=== PATIENT | male | born 1960 | race Caucasian/White ===

== ENCOUNTER 2022-02-28 16:31 | Inpatient (IN) ==
[2022-02-28] MEDS ORDERED: IOPAMIDOL 100 ML BOTTLE IV ONE (16:32)
[2022-02-28] MEDS ORDERED: 0.9 % SODIUM CHLORIDE 2,000 ML IV ONE (17:48)
[2022-02-28] MEDS ORDERED: ONDANSETRON 4 MG/2 ML VIAL IV ONE (17:48)
[2022-02-28] MEDS ORDERED: HYDROmorphone 0.5 MG/0.5 ML SYRINGE IV ONE (17:48)
--- NOTE | 2022-02-28 17:56 | Emergency Department Note ---
Nausea/Vomiting/Diarrhea HPI General Chief complaint: Nausea/Vomiting/Diarrhea Stated complaint: possible drug reaction Time Seen by Provider: 02/28/22 17:07 Source: patient Mode of arrival: ambulatory Limitations: no limitations History of Present Illness HPI Narrative: 61-year-old male on chronic warfarin for DVT presents with acute nausea, vomiting and abdominal pain. He was seen in the ER yesterday at [facility] for a left thigh abscess, which was incised and drained. He was put on clindamycin. He took 1 pill of this yesterday and then started having immediate abdominal pain with nausea and vomiting. He returned to [facility] ER this morning where they gave him some nausea medication and sent him home. He comes to the ER today with persistent and w orsening abdominal pain. His last bowel movement was yesterday. He has not passed flatus today. He is belching. Previous abdominal surgeries include a subtotal colectomy for colon cancer. Related Data Home Medications Medication Instructions Recorded Confirmed warfarin 5 mg tablet See Rx Instructions .Route .COMPLEX 02/28/22 02/28/22 Allergies Allergy/AdvReac Type Severity Reaction Status Date / Time No Known Drug Allergies Allergy Verified 02/28/22 21:02 Review of Systems ROS ROS Narrative: Narrative: All systems ED: reviewed and negative except as stated. [facility] Narrative Patient History Narrative: Narrative: Medical/Surgical/Family History All Active Problems (Updated 02/28/22 @ 21:18 by Alton Osorio MD) SBO (small bowel obstruction) (Acute) Medical History (Updated 02/28/22 @ 21:18 by Alton Osorio MD) Ulcerative colitis Surgical History History of colectomy Social History Smoking Status: Never smoker Exam Narrative Narrative: There is a general: AOx3, Radha the position due to pain. Wincing. HEENT: PERRL, EOMI, normocephalic. Dry mucous membranes. Normal facies and normal dentition. Chest: Symmetric, no pain to palpation Respiratory: Lungs clear to auscultation bilaterally. No respiratory distress. Unlabored breathing. Heart: Tachycardic rate 110 bpm, normal rhythm, no murmurs/clicks/rubs. Abdomen: Diffuse tenderness with moderate distention Extremities: Warm and well perfused. No edema. DP 2+ bilaterally. No venous stasis. Small 1 x 1 cm abscess to the left anterior thigh. There is emil rounding erythema consistent with mild cellulitis. Neuro: No focal deficits. Cranial nerves II-XII grossly normal. Skin: Warm dry, no rashes or lesions, no cyanosis. Psych: Normal mood and affect Heme/Lymph: No abnormal bruising General Limitations: no limitations Course Course Course Narrative: 61-year-old male presents with acute abdominal pain and nausea and vomiting Reevaluation(s) Reevaluation #1: Obtain basic labs, establish IV give IV fluids and antiemetics/analgesics CT of the abdomen pelvis with contrast to rule out small bowel obstruction Reevaluation #2: CT of the A/P shows mechanical SBO. I have reached out to Dr. Osorio for admission. Will place and NGT and keep NPO. Continue dilaudid for pain and IVFs. Vital Signs Vital signs: Vital Signs Temperature 97.3 F 02/28/22 16:34 Pulse Rate 110 H 02/28/22 16:34 Respiratory Rate 18 02/28/22 16:34 Blood Pressure 130/95 02/28/22 16:34 Pulse Oximetry (%) 95 02/28/22 16:34 Oxygen Delivery Method 02/28/22 16:34 Temperature 98.2 F 02/28/22 22:22 Pulse Rate 80 02/28/22 22:22 Respiratory Rate 14 02/28/22 22:22 Blood Pressure 131/83 02/28/22 22:22 Pulse Oximetry (%) 97 02/28/22 22:22 Oxygen Delivery Method 02/28/22 22:22 Oxygen Flow Rate (L/min) 2 02/28/22 22:22 [facility] Narrative Medical decision making narrative: Mechanical SBO Patient has been accepted for admission by Dr. Osorio. NGT has been placed and is on LIS. Lab Data Result diagrams: 02/28/22 17:57 Labs: Lab Results 02/28/22 02/28/22 02/28/22 Range/Units 17:57 17:57 18:06 WBC 18.2 H (4.5-11.0) K/mcL RBC 5.61 (4.63-6.08) M/mcL Hgb 17.0 (13.7-17.5) g/dL Hct 50.3 (40.1-51.0) % POC Hct 51.0 (41-55) MCV 89.7 (80.0-100.0) fL MCH 30.3 (26.0-34.0) pg MCHC 33.8 (31.0-36.0) g/dL RDW 13.6 (11.5-14.5) % Plt Count 323 (140-440) K/mcL MPV 9.6 (7.4-10.4) fL Immature Gran % (Auto) 0.3 (0.0-0.5) % Neut % (Auto) 92.8 H (38.0-78.0) % Lymph % (Auto) 2.5 L (15.5-49.0) % Yell % (Auto) 4.2 (1.0-12.0) % Eos % (Auto) 0 (0.0-7.0) % Baso % (Auto) 0.2 (0.0-2.0) % Lymph # (Auto) 0.45 L (1.50-4.80) K/mcL Yell # (Auto) 0.76 (0.10-0.90) K/mcL Eos # (Auto) 0 (0.00-0.70) K/mcL Baso # (Auto) 0.03 (0.00-0.30) K/mcL Immature Gran # 0.05 (0.00-0.05) K/mcl Absolute Neutrophils 16.92 H (1.80-8.00) K/mcL POC Sodium 139 (133-145) POC Potassium 4.3 (3.3-5.1) POC Chloride 106 (96-108) POC Total CO2 26.0 (22-30) POC BUN 14 (6-20) POC Creatinine 1.3 H (0.6-1.2) POC Glucose 150 H (70-105) POC WB Ioniz Calcium 1.08 L (1.16-1.32) Total Bilirubin 0.5 (0.1-1.0) mg/dL Direct Bilirubin < 0.2 (0-0.3) mg/dL AST 40 H (<40) U/L ALT 61 H (<40) U/L Alkaline Phosphatase 209 H (39-117) U/L Total Protein 7.6 (5.9-8.4) gm/dL Albumin 4.0 (3.2-5.2) gm/dL Globulin 3.6 (2.2-3.7) gm/dL Urine Color Urine Appearance (Clear) Urine pH (5.0-9.0) Ur Specific [place] (1.000-1.035) Urine Protein (Negative) mg/dL Urine Glucose (UA) (Negative) mg/dL Urine Ketones (Negative) mg/dL Urine Occult Blood (Negative) kinga/mcL Urine Nitrate (Negative) Urine Bilirubin (Negative) mg/dL Urine Urobilinogen mg/dL Ur Leukocyte Esterase (Negative) /uL Urine RBC (0-3) /hpf Urine WBC (0-4) /hpf Ur Squamous Epith Cells (0-4) /hpf Urine Bacteria (0) /hpf Urine Mucus (None) /hpf Ur Culture Indicated? 02/28/22 Range/Units 19:35 WBC (4.5-11.0) K/mcL RBC (4.63-6.08) M/mcL Hgb (13.7-17.5) g/dL Hct (40.1-51.0) % POC Hct (41-55) MCV (80.0-100.0) fL MCH (26.0-34.0) pg MCHC (31.0-36.0) g/dL RDW (11.5-14.5) % Plt Count (140-440) K/mcL MPV (7.4-10.4) fL Immature Gran % (Auto) (0.0-0.5) % Neut % (Auto) (38.0-78.0) % Lymph % (Auto) (15.5-49.0) % Yell % (Auto) (1.0-12.0) % Eos % (Auto) (0.0-7.0) % Baso % (Auto) (0.0-2.0) % Lymph # (Auto) (1.50-4.80) K/mcL Yell # (Auto) (0.10-0.90) K/mcL Eos # (Auto) (0.00-0.70) K/mcL Baso # (Auto) (0.00-0.30) K/mcL Immature Gran # (0.00-0.05) K/mcl Absolute Neutrophils (1.80-8.00) K/mcL POC Sodium (133-145) POC Potassium (3.3-5.1) POC Chloride (96-108) POC Total CO2 (22-30) POC BUN (6-20) POC Creatinine (0.6-1.2) POC Glucose (70-105) POC WB Ioniz Calcium (1.16-1.32) Total Bilirubin (0.1-1.0) mg/dL Direct Bilirubin (0-0.3) mg/dL AST (<40) U/L ALT (<40) U/L Alkaline Phosphatase (39-117) U/L Total Protein (5.9-8.4) gm/dL Albumin (3.2-5.2) gm/dL Globulin (2.2-3.7) gm/dL Urine Color Yellow Urine Appearance Clear (Clear) Urine pH 5.5 (5.0-9.0) Ur Specific [place] 1.010 (1.000-1.035) Urine Protein Negative (Negative) mg/dL Urine Glucose (UA) Negative (Negative) mg/dL Urine Ketones Negative (Negative) mg/dL Urine Occult Blood Trace-intact A (Negative) kinga/mcL Urine Nitrate Negative (Negative) Urine Bilirubin Negative (Negative) mg/dL Urine Urobilinogen Normal mg/dL Ur Leukocyte Esterase Negative (Negative) /uL Urine RBC 0 (0-3) /hpf Urine WBC 1 (0-4) /hpf Ur Squamous Epith Cells 0 (0-4) /hpf Urine Bacteria None (0) /hpf Urine Mucus Few A (None) /hpf Ur Culture Indicated? No Discharge Plan Patient/Caregiver Discharge Instructions Pt seen by [employer] MANAGER/PA only: Yes Clinical Impression: SBO (small bowel obstruction) Patient Disposition: Xfer As Inpt ([facility]) Discharge Date/Time: 02/28/22 20:45
[2022-02-28 18:11] LABS: POC Calcium, Ionized 1.08 (1.16-1.32); POC Creatinine 1.3 (0.6-1.2); POC Potassium 4.3 (3.3-5.1)
[2022-02-28 18:50] LABS: Basophils # (Auto) 0.03 K/mcL (0.00-0.30); Basophils % (Auto) 0.2 % (0.0-2.0); Eosinophils # (Auto) 0 K/mcL (0.00-0.70); Eosinophils % (Auto) 0 % (0.0-7.0); Hematocrit 50.3 % (40.1-51.0); Lymphocytes # (Auto) 0.45 K/mcL (1.50-4.80); Lymphocytes % (Auto) 2.5 % (15.5-49.0); Mean Cell Volume 89.7 fL (80.0-100.0); Mean Corpuscular HGB Conc 33.8 g/dL (31.0-36.0); Mean Platelet Volume 9.6 fL (7.4-10.4); Monocytes # (Auto) 0.76 K/mcL (0.10-0.90); Monocytes % (Auto) 4.2 % (1.0-12.0); Neutrophils % (Auto) 92.8 % (38.0-78.0); Platelet Count 323 K/mcL (140-440); RBC 5.61 M/mcL (4.63-6.08); Red Cell Distribution Width 13.6 % (11.5-14.5); WBC 18.2 K/mcL (4.5-11.0)
--- NOTE | 2022-02-28 18:59 | Cat Scan Report ---
INDICATION: r/o SBO COMPARISON: Previous examination dated 12/09/2013 TECHNIQUE: Axial images were obtained through the abdomen and pelvis. Sagittally and coronally reformatted images. 80 mL Isovue 370 injected intravenously. Oral contrast material was not administered FINDINGS: Lung bases:Negative. No pulmonary parenchymal nodule. No pleural fluid or pericardial fluid Liver:Negative. No focal intrahepatic mass. No focal abnormality. Liver contour is smooth. No evidence for cirrhosis Gallbladder, bilary:Gallbladder is somewhat distended. No detectable calculi. There is no significant intra or extrahepatic bile duct dilatation. Spleen:No splenomegaly. Normal enhancement of splenic and portal veins. Pancreas:No pancreatic mass. No peripancreatic abnormality Adrenal glands:Negative Kidneys,ureters,bladder:No solid renal mass. No hydronephrosis. No obstructing or nonobstructing calculi. There is a 2 cm right upper pole renal cyst No hydroureter. No ureteral calculus. No bladder stone. No detectable bladder mass. Gastrointestinal:Previous subtotal colectomy. There are 2 anastomotic suture lines within the distal colon at the rectum and distal sigmoid colon. There is fecal material within the distal sigmoid colon and rectum. There is a mechanical small bowel obstruction. There is dilated small bowel and extensive small bowel feces. Small bowel measures approximately 4 cm in maximum cross-sectional diameter. There is an ileal colonic anastomosis in the midline pelvis. Ileum just proximal is not dilated and this may be a site of obstruction. There is some nondilated fluid-filled jejunum in the left upper quadrant.. There is no closed-loop obstruction. No evidence for bowel ischemia Stomach and duodenum are distended and fluid-filled. There is a small hiatal hernia. Appendix: The appendix is removed Vascular:Negative abdominal aorta. Superior mesenteric artery and celiac trunk are normal. Normal opacification of the inferior mesenteric artery Lymphatic:No retroperitoneal or mesenteric adenopathy Mesentery, peritoneum: Minimal free fluid in the right lower quadrant. No intra-abdominal abscess. No pneumoperitoneum Reproductive:Prostate is not significantly enlarged Musculoskeletal:No lumbar compression fractures. Sacrum and pelvis are negative. No hip fracture. Small umbilical hernia containing only mesenteric fat. Hernia defect measures approximately 2 cm IMPRESSION: 1. Previous subtotal colectomy 2. Mechanical small bowel obstruction with dilated stomach and duodenum. There is dilated ileum and a large amount of small bowel feces 3. Focal narrowing at the ileal colonic anastomosis within the pelvis 4. Small amount of free intraperitoneal fluid 5. Small umbilical hernia containing only mesenteric fat 6. Small hiatal hernia The exam was performed using radiation dose optimization techniques including, but not limited to, automated exposure control, adjustment of the mA and/or kV according to patient size and use of iterative reconstruction technique. Interpreted and Authenticated by: Jacob Blanco 02/28/22
[2022-02-28] MEDS ORDERED: HYDROmorphone 1 MG/ML SYRINGE IV ONE (19:10)
[2022-02-28 19:26] LABS: ALT/SGPT 61 U/L (<40); AST/SGOT 40 U/L (<40); Alkaline Phosphatase 209 U/L (39-117); Bilirubin,Direct < 0.2 mg/dL (0-0.3); Bilirubin,Total 0.5 mg/dL (0.1-1.0); Globulin 3.6 gm/dL (2.2-3.7)
[2022-02-28] MEDS ORDERED: HYDROmorphone 1 MG/ML SYRINGE IV PRN (19:36)
[2022-02-28 20:57] LABS: Appearance,Urine Clear (Clear); Bilirubin,Urine Negative (Negative); Color,Urine Yellow; Culture Indicated,Urine No; Glucose,Urine (UA) Negative (Negative); Ketones,Urine Negative (Negative); Leukocyte Esterase,Urine Negative /uL (Negative); Mucus,Urine FEW /hpf; Nitrate,Urine Negative (Negative); PH,Urine 5.5 (5.0-9.0); Protein,Urine Negative (Negative); Urine Blood Trace-intact ery/mcL (Negative); Urine RBC 0 /hpf (0-3); Urine Squamous Epithelial Cell 0 /hpf (0-4); Urine WBC 1 /hpf (0-4); Urobilinogen,Urine Normal
--- NOTE | 2022-02-28 21:20 | General Surg History&Physical ---
HPI History of Present Illness Patient information: Note initiated : 02/28/22 at 9:16 pm Service Date, if different from initiated Date: [] Patient: Prosper Kellogg a 61 y/o M admitted on 02/28/22 for possible drug reaction. Chief Complaint: [] History of present illness: Mr. Kellogg is a 61 year old M who presents with 1 day history of abdominal pain, distention, nausea and emesis. Patient was seen twice at [facility] emergency room, was discharged without work-up. Patient has a past surgical history significant for total abdominal colectomy secondary to ulcerative colitis. He has not had any episodes of bowel obstruction in the past. He does report that he has been distended but he has no fevers chills nausea or vomiting. Work-up in the emergency room was significant for a CT scan consistent with partial small bowel obstruction. PFSH PFSH All Active Problems (Updated 02/28/22 @ 21:18 by Alton Osorio MD) SBO (small bowel obstruction) (Acute) Medical History (Updated 02/28/22 @ 21:18 by Alton Osorio MD) Ulcerative colitis Surgical History History of colectomy Social History smoking status: Never smoker MEDS/ALLERGIES Home Medications and Allergies Home Medications Medication Instructions Recorded Confirmed Type warfarin 5 mg tablet See Rx Instructions .Route .COMPLEX 02/28/22 02/28/22 History Allergies Allergy/AdvReac Type Severity Reaction Status Date / Time No Known Drug Allergies Allergy Verified 02/28/22 21:02 Physical Examination Vital Signs Vital signs: Temp Pulse Resp BP Pulse Ox O2 Del Method O2 Flow Rate 98.2 F 98 H 14 155/98 96 2 02/28/22 20:53 02/28/22 20:53 02/28/22 20:53 02/28/22 20:53 02/28/22 20:53 02/28/22 20:53 02/28/22 20:53 General physical appearance General physical exam: well developed, well nourished and no distress Eyes Eye exam: PERRL and normal ocular movement ENT ENT exam: normal pinna, normal nares, normal mucosa, no hearing loss and no congestion Head Head exam IM: Present atraumatic and normocephalic Neck Neck exam: no masses, no bruits, trachea midline, no lymphadenopathy and no venous distension Cardiovascular Cardiovascular exam IM: Present normal rate and rhythm Respiratory Respiratory exam: normal expansion, normal respiratory effort, clear to percussion and clear to auscultation Abdomen Abdomen: Present soft, non tender, bowel sounds, surgical scars and distended; Absent guarding or rebound Hernia: Present none Genitourinary Genitourinary (Male): Present normal penis with no external lesions Rectum Rectum: Present normal sphincter tone, no hemorrhoids, no tenderness, no masses and no bleeding Integumentary Integumentary: Present no rash, no growths and no abnormal pigmentation Neurologic Neurologic: Present normal coordination and normal sensation Musculoskeletal Musculoskeletal: Present normal gait and normal posture Psychiatric Psychiatric: Present oriented to time, oriented to person, oriented to place, speech is normal and memory intact Results Labs Result diagrams: 02/28/22 17:57 Labs: Abnormal lab results 02/28/22 02/28/22 02/28/22 Range/Units 17:57 17:57 18:06 WBC 18.2 H (4.5-11.0) K/mcL Neut % (Auto) 92.8 H (38.0-78.0) % Lymph % (Auto) 2.5 L (15.5-49.0) % Lymph # (Auto) 0.45 L (1.50-4.80) K/mcL Absolute Neutrophils 16.92 H (1.80-8.00) K/mcL POC Creatinine 1.3 H (0.6-1.2) POC Glucose 150 H (70-105) POC WB Ioniz Calcium 1.08 L (1.16-1.32) AST 40 H (<40) U/L ALT 61 H (<40) U/L Alkaline Phosphatase 209 H (39-117) U/L Urine Occult Blood (Negative) kinga/mcL Urine Mucus (None) /hpf 02/28/22 Range/Units 19:35 WBC (4.5-11.0) K/mcL Neut % (Auto) (38.0-78.0) % Lymph % (Auto) (15.5-49.0) % Lymph # (Auto) (1.50-4.80) K/mcL Absolute Neutrophils (1.80-8.00) K/mcL POC Creatinine (0.6-1.2) POC Glucose (70-105) POC WB Ioniz Calcium (1.16-1.32) AST (<40) U/L ALT (<40) U/L Alkaline Phosphatase (39-117) U/L Urine Occult Blood Trace-intact A (Negative) kinga/mcL Urine Mucus Few A (None) /hpf Diabetes panel 02/28/22 Range/Units 17:57 AST 40 H (<40) U/L ALT 61 H (<40) U/L Alkaline Phosphatase 209 H (39-117) U/L Total Protein 7.6 (5.9-8.4) gm/dL Albumin 4.0 (3.2-5.2) gm/dL Calcium panel 02/28/22 Range/Units 17:57 Albumin 4.0 (3.2-5.2) gm/dL Adrenal panel 02/28/22 Range/Units 17:57 Total Bilirubin 0.5 (0.1-1.0) mg/dL AST 40 H (<40) U/L ALT 61 H (<40) U/L Alkaline Phosphatase 209 H (39-117) U/L Total Protein 7.6 (5.9-8.4) gm/dL Albumin 4.0 (3.2-5.2) gm/dL All other labs normal. Imaging CT scan - abdomen: image reviewed A/P Assessment and plan (1) SBO (small bowel obstruction): Assessment and plan: This is a pleasant 61-year-old gentleman who presents with signs and symptoms most consistent with a partial small bowel obstruction. Long discussion with patient about treatment details. He verbalizes understan ding Plan: N.p.o., NG tube. Likely partial small bowel follow-through in the morning. Status: Acute Time Spent With Patient Time: Total time spent is greater than 50% in coordination of care (as documented) at patient's floor/unit and/or counseling patient:
[2022-02-28] MEDS: LACTATED RINGERS 1,000 ML IV SCH (21:35)
[2022-02-28] MEDS: HYDROmorphone 0.5 MG/0.5 ML SYRINGE IV PRN (21:36)
[2022-02-28] MEDS ORDERED: SUCRETS LOZENGE PO PRN (22:49)
[2022-02-28] MEDS ORDERED: SUCRETS LOZENGE PO ONE (23:07)
[2022-03-01] MEDS: HYDROmorphone 0.5 MG/0.5 ML SYRINGE IV PRN ×8 (00:35→17:06)
[2022-03-01] MEDS: LACTATED RINGERS 1,000 ML IV SCH ×4 (05:35→23:56)
[2022-03-01 05:58] LABS: Basophils # (Auto) 0.02 K/mcL (0.00-0.30); Basophils % (Auto) 0.2 % (0.0-2.0); Eosinophils # (Auto) 0.01 K/mcL (0.00-0.70); Eosinophils % (Auto) 0.1 % (0.0-7.0); Hematocrit 45.6 % (40.1-51.0); Hemoglobin 14.8 g/dL (13.7-17.5); Lymphocytes # (Auto) 0.63 K/mcL (1.50-4.80); Lymphocytes % (Auto) 5.4 % (15.5-49.0); Mean Cell Volume 93.1 fL (80.0-100.0); Mean Corpuscular HGB Conc 32.5 g/dL (31.0-36.0); Mean Platelet Volume 8.6 fL (7.4-10.4); Monocytes # (Auto) 0.88 K/mcL (0.10-0.90); Monocytes % (Auto) 7.5 % (1.0-12.0); Neutrophils % (Auto) 86.5 % (38.0-78.0); Platelet Count 263 K/mcL (140-440); Red Cell Distribution Width 13.8 % (11.5-14.5); WBC 11.7 K/mcL (4.5-11.0)
--- NOTE | 2022-03-01 06:17 | XRay Report ---
INDICATION: NGTube placement verification TECHNIQUE: Supine abdomen. COMPARISON: CT scan dated 02/28/2022 FINDINGS:Esophagogastric tube with its tip in the body of the stomach. There is persistent dilated jejunum and ileum. No pneumatosis. No focal abnormality IMPRESSION: Esophagogastric tube in the stomach Interpreted and Authenticated by: Jacob Blanco 03/01/22
[2022-03-01 06:19] LABS: Blood Urea Nitrogen 14 mg/dL (8-23); Calcium 8.6 mg/dL (8.6-10.4); Carbon Dioxide 25 mmol/L (22-30); Chloride 109 mmol/L (96-108); Glomerular Filtration Rate 64; Glucose 131 mg/dL (70-105)
[2022-03-01] MEDS: ONDANSETRON 4 MG/2 ML VIAL IV PRN (14:02)
--- NOTE | 2022-03-01 14:21 | General Surgery Progress Note ---
SUBJECTIVE Subjective Patient information: Note initiated : 03/01/22 at 2:20 pm Service Date, if different from initiated Date: [] Patient: Prosper Kellogg 61 y/o M admitted on 02/28/22 for possible drug reaction. Chief Complaint: [] Interval history: Patient with continued crampy pain overnight, although he reports feeling less distended. Constitutional Vitals: Vital Signs Temp Pulse Resp BP Pulse Ox O2 Del Method O2 Flow Rate 97.4 F 101 H 16 141/88 95 2 03/01/22 12:00 03/01/22 12:00 03/01/22 12:00 03/01/22 12:00 03/01/22 12:00 03/01/22 12:00 03/01/22 12:00 Period Temp Pulse Resp BP Sys/Interiano Pulse Ox O2 Del Method O2 Flow Rate Last 24 Hr 97.3 F-98.4 F 64-110 14-18 130-171/83-103 67-98 Nasal Cannula- Room Air 1-4 Intake and Output 03/01/22 03/01/22 03/01/22 05:59 13:59 21:59 Intake Total 1000 1000 Output Total 200 200 Balance 800 800 Weight 160 lb 4.8 oz Patient Weight 03/02/22 05:59 Weight 160 lb 4.8 oz Intake & Output: Intake & Output 03/01/22 03/01/22 03/01/22 05:59 13:59 21:59 Intake Total 1000 1000 Output Total 200 200 Balance 800 800 Weight 160 lb 4.8 oz Intake: IV 1000 1000 Lactated Ringers 1,000 ml @ 125 1000 1000 mls/hr IV .Q8H [facility] Rx#: [id number] Oral 0 Output: Gastric Drainage 200 Right Nare 200 Void Amount 200 Other: Urine Appearance Clear Urine Color Dark Yellow Urine Odor Normal General appearance: no acute distress GI/Abdominal GI/Abdominal exam: Present soft; Absent distended, mass, rebound or tenderness A/P Assessment and plan (1) SBO (small bowel obstruction): Plan: Patient admitted with partial small bowel obstruction. Continue NG tube, and p.o. Small bowel follow-through today. Status: Acute Time Spent With Patient Time: Total time spent is greater than 50% in coordination of care (as documented) at patient's floor/unit and/or counseling patient:
[2022-03-01] MEDS ORDERED: 0.9 % SODIUM CHLORIDE 1,000 ML IV SCH (18:15)
[2022-03-01] MEDS ORDERED: LORazepam 2 MG/ML VIAL IV ONE (18:21)
[2022-03-01] MEDS ORDERED: LORazepam 2 MG/ML VIAL ONE (18:22)
[2022-03-01 18:27] LABS: POC INR 3.2 (0.8-1.2); POC Pro Time 36.8 (11.9-14.5)
--- NOTE | 2022-03-01 18:31 | XRay Report ---
INDICATION: Tachycardia TECHNIQUE: AP portable semiupright chest x-ray COMPARISON: Previous chest x-rays dated 11/28/2020, 01/27/2019, 09/16/2016 FINDINGS:Esophagogastric tube within the stomach Lungs:Parenchymal density in the left retrocardiac region consistent with left lower lobe volume loss or pneumonia. Lungs are otherwise negative Heart, vascular:No significant cardiomegaly. Pulmonary vascularity is normal. No pulmonary edema or pulmonary congestion Mediastinum, yesika:No mediastinal widening. No hilar mass Pleura:No pleural fluid. No pleural-based mass or calcification Skeletal:Negative. IMPRESSION: Density at the left lung base consistent with volume loss or pneumonia Interpreted and Authenticated by: Jacob Blanco 03/01/22
[2022-03-01] MEDS ORDERED: METOPROLOL TARTRATE 5 MG/5 ML VIAL IV ONE (18:52)
[2022-03-01] MEDS ORDERED: PIPERACILLIN SODIUM/TAZOBACTAM 3.375 GM in DEXTROSE 5% IN WATER 50 ML IV ONE (18:53)
[2022-03-01] MEDS ORDERED: LACTATED RINGERS 1,000 ML IV ONE (18:56)
--- NOTE | 2022-03-01 19:03 | Internal Medicine Consult Note ---
HPI Data of Consult Consult date: 03/01/22 Requesting physician: Alton Osorio Primary Care Provider: Kike Cantrell Consult Narrative Patient Information: Note initiated : 03/01/22 at 6:58 pm Service Date, if different from initiated Date: [] Patient: Prosper Kellogg 61 y/o M admitted on 02/28/22 for possible drug reaction. 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 He was admitted under the surgical service. NG tube was placed for decompression and he was managed nonoperatively. Today, the patient had a rapid response due to tachycardia with a heart rate of 170. He was hemodynamically stable. The patient was alert, oriented and able to converse. A carotid massage was attempted as well as a vagal maneuver for SVT. The patient was given Lopressor 5 mg IV x1 and his heart rate has come down nicely. The patient states that he has no known history of cardiovascular disease, arrhythmias, or valvular heart disease. The hospital service has been consulted to manage his supraventricular tachyarrhythmia. Chief complaint: Rapid response cc:: CC: Alton Osorio MD Review of Systems All systems: reviewed and no additional remarkable complaints except as stated Constitutional Constitutional: Present as per HPI EENT Eyes: Present as per HPI; Absent blurry vision Cardiovascular Cardiovascular: Present as per HPI; Absent chest pain, dyspnea, dyspnea on exertion, leg edema or palpatations Respiratory Respiratory: Present as per HPI; Absent cough, dyspnea, dyspnea on exertion, wheezing or stridor Gastrointestinal Gastrointestinal: Present as per HPI; Absent abdominal pain, diarrhea, dysphagia, hematemesis, melena, nausea or vomiting Musculoskeletal Musculoskeletal: Present as per HPI; Absent joint swelling, limited range of motion, muscle cramps, muscle weakness or myalgias Integumentary Integumentary: Present as per HPI; Absent erythema, new lesions, rash or wounds Neurological Neurological: Present as per HPI; Absent abnormal gait, behavioral changes, focal weakness, headache(s), loss of vision, numbness, sensory deficit or syncope Endocrine Endocrine: Absent change in body appearance, fatigue or heat intolerance Hematologic/Lymphatic Hematologic/Lymphatic: Present as per HPI PFSH PFSH All Active Problems (Updated 03/01/22 @ 20:02 by Joeleln Shah MD) SVT (supraventricular tachycardia) (Acute) SBO (small bowel obstruction) (Acute) Medical History (Updated 03/01/22 @ 20:02 by Joellen Shah MD) Ulcerative colitis Surgical History History of colectomy Social History smoking status: Never smoker MEDS/ALLERGIES Home Medications and Allergies Home Medications Medication Instructions Recorded Confirmed Type warfarin 5 mg tablet See Rx Instructions .Route .COMPLEX 02/28/22 02/28/22 History Allergies Allergy/AdvReac Type Severity Reaction Status Date / Time No Known Drug Allergies Allergy Verified 02/28/22 21:02 EXAM Constitutional Vitals: Temp Pulse Resp BP Pulse Ox O2 Del Method O2 Flow Rate 100.1 F H 141 H 28 H 162/100 90 15 03/01/22 16:00 03/01/22 18:06 03/01/22 18:06 03/01/22 16:00 03/01/22 18:06 03/01/22 18:06 03/01/22 18:06 General appearance: average body habitus Head Head exam: Present atraumatic, normal inspection and normocephalic Eye Eye exam: Present EOMI, normal appearance and PERRL; Absent conjunctival injection ENT ENT exam: Present normal exam; Absent mucous membranes dry Neck Neck exam: Present full ROM; Absent lymphadenopathy Respiratory Respiratory exam: Present normal respiratory exam and CTAB; Absent decreased breath sounds, respiratory distress or wheezes Cardiovascular Cardiovascular exam: Present RRR and tachycardia; Absent normal rate and rhythm or JVD GI/Abdominal GI/Abdominal exam: Present soft; Absent normal bowel sounds, diminished bowel sounds, distended, guarding, mass, rebound or tenderness Neurological Exam Neurological exam: Present alert, CN II-XII intact and oriented X3 Psychiatric Psychiatric exam: Present normal affect and normal mood Skin Skin exam: Present intact and warm; Absent erythema, pallor, petechiae or rash DATA Data Completed and Pending Labs: Labs from last 24 hours 03/01/22 03/01/22 03/01/22 18:53 18:53 18:50 WBC RBC Hgb Hct MCV MCH MCHC RDW Plt Count MPV Immature Gran % (Auto) Neut % (Auto) Lymph % (Auto) [place] % (Auto) Eos % (Auto) Baso % (Auto) Lymph # (Auto) [place] # (Auto) Eos # (Auto) Baso # (Auto) Immature Gran # Absolute Neutrophils POC PT POC INR D-Dimer Pending POC VBG pH POC VBG pCO2 at Temp POC VBG pO2 POC VBG HCO3 POC VBG Total CO2 POC Venous O2 Sat POC VBG Base Excess VBG Lactic Acid Sodium Potassium Chloride Carbon Dioxide Anion Gap BUN Creatinine GFR Calculation Glucose Calcium Magnesium Pending Total Bilirubin Direct Bilirubin AST ALT Alkaline Phosphatase Troponin T Pending Total Protein Albumin Globulin Albumin/Globulin Ratio Urine Color Urine Appearance Urine pH Ur Specific [place] Urine Protein Urine Glucose (UA) Urine Ketones Urine Occult Blood Urine Nitrate Urine Bilirubin Urine Urobilinogen Ur Leukocyte Esterase Urine RBC Urine WBC Ur Squamous Epith Cells Urine Bacteria Urine Mucus Ur Culture Indicated? 03/01/22 03/01/22 03/01/22 18:33 18:24 18:24 WBC RBC Hgb Hct MCV MCH MCHC RDW Plt Count MPV Immature Gran % (Auto) Neut % (Auto) Lymph % (Auto) [place] % (Auto) Eos % (Auto) Baso % (Auto) Lymph # (Auto) [place] # (Auto) Eos # (Auto) Baso # (Auto) Immature Gran # Absolute Neutrophils POC PT 36.8 H POC INR 3.2 H D-Dimer POC VBG pH 7.32 POC VBG pCO2 at Temp 55.3 H POC VBG pO2 27 POC VBG HCO3 28.3 H POC VBG Total CO2 30.0 H POC Venous O2 Sat 45.0 POC VBG Base Excess 2.0 VBG Lactic Acid 4.6 H* Sodium Pending Potassium Pending Chloride Pending Carbon Dioxide Pending Anion Gap Pending BUN Pending Creatinine Pending GFR Calculation Pending Glucose Pending Calcium Pending Magnesium Total Bilirubin Pending Direct Bilirubin AST Pending ALT Pending Alkaline Phosphatase Pending Troponin T Total Protein Pending Albumin Pending Globulin Pending Albumin/Globulin Ratio Pending Urine Color Urine Appearance Urine pH Ur Specific [place] Urine Protein Urine Glucose (UA) Urine Ketones Urine Occult Blood Urine Nitrate Urine Bilirubin Urine Urobilinogen Ur Leukocyte Esterase Urine RBC Urine WBC Ur Squamous Epith Cells Urine Bacteria Urine Mucus Ur Culture Indicated? 03/01/22 03/01/22 03/01/22 18:24 05:24 05:24 WBC Pending 11.7 H RBC Pending 4.90 Hgb Pending 14.8 Hct Pending 45.6 MCV Pending 93.1 MCH Pending 30.2 MCHC Pending 32.5 RDW Pending 13.8 Plt Count Pending 263 MPV Pending 8.6 Immature Gran % (Auto) Pending 0.3 Neut % (Auto) Pending 86.5 H Lymph % (Auto) 5.4 L [place] % (Auto) 7.5 Eos % (Auto) 0.1 Baso % (Auto) 0.2 Lymph # (Auto) 0.63 L [place] # (Auto) 0.88 Eos # (Auto) 0.01 Baso # (Auto) 0.02 Immature Gran # Pending 0.03 Absolute Neutrophils 10.12 H POC PT POC INR D-Dimer POC VBG pH POC VBG pCO2 at Temp POC VBG pO2 POC VBG HCO3 POC VBG Total CO2 POC Venous O2 Sat POC VBG Base Excess VBG Lactic Acid Sodium 140 Potassium 4.2 Chloride 109 H Carbon Dioxide 25 Anion Gap 6.0 L BUN 14 Creatinine 1.2 GFR Calculation 64 Glucose 131 H Calcium 8.6 Magnesium Total Bilirubin Direct Bilirubin AST ALT Alkaline Phosphatase Troponin T Total Protein Albumin Globulin Albumin/Globulin Ratio Urine Color Urine Appearance Urine pH Ur Specific [place] Urine Protein Urine Glucose (UA) Urine Ketones Urine Occult Blood Urine Nitrate Urine Bilirubin Urine Urobilinogen Ur Leukocyte Esterase Urine RBC Urine WBC Ur Squamous Epith Cells Urine Bacteria Urine Mucus Ur Culture Indicated? 02/28/22 02/28/22 19:35 17:57 WBC RBC Hgb Hct MCV MCH MCHC RDW Plt Count MPV Immature Gran % (Auto) Neut % (Auto) Lymph % (Auto) [place] % (Auto) Eos % (Auto) Baso % (Auto) Lymph # (Auto) [place] # (Auto) Eos # (Auto) Baso # (Auto) Immature Gran # Absolute Neutrophils POC PT POC INR D-Dimer POC VBG pH POC VBG pCO2 at Temp POC VBG pO2 POC VBG HCO3 POC VBG Total CO2 POC Venous O2 Sat POC VBG Base Excess VBG Lactic Acid Sodium Potassium Chloride Carbon Dioxide Anion Gap BUN Creatinine GFR Calculation Glucose Calcium Magnesium Total Bilirubin 0.5 Direct Bilirubin < 0.2 AST 40 H ALT 61 H Alkaline Phosphatase 209 H Troponin T Total Protein 7.6 Albumin 4.0 Globulin 3.6 Albumin/Globulin Ratio Urine Color Yellow Urine Appearance Clear Urine pH 5.5 Ur Specific [place] 1.010 Urine Protein Negative Urine Glucose (UA) Negative Urine Ketones Negative Urine Occult Blood Trace-intact A Urine Nitrate Negative Urine Bilirubin Negative Urine Urobilinogen Normal Ur Leukocyte Esterase Negative Urine RBC 0 Urine WBC 1 Ur Squamous Epith Cells 0 Urine Bacteria None Urine Mucus Few A Ur Culture Indicated? No A/P Assessment and plan (1) SBO (small bowel obstruction): Assessment and plan: Mx per surgery Status: Acute (2) SVT (supraventricular tachycardia): Assessment and plan: Tacchydysrhythmia rising above the [place] of [place] and encompasses regular atrial, irrgular atrial and regular AV tachycardias -DDX: AVRT, AVNRT, AF/flutter, ST -Investigations: TTE, d-dimer, trop, Mg, Phos -Tx: Lopressor 5mg IV x 1, repeat prn -Monitor on telemetry Status: Acute Narrative A/P Narrative: Lactic acidosis -Investigations: CT a/p with contrast r/o ischemic bowel -Tx: LR bolus Time Spent With Patient Time: Total time spent is greater than 50% in coordination of care (as documented) at patient's floor/unit and/or counseling patient: Total time spent with greater than 50% in coordination of care (as documented) at patient's floor/unit and/or counseling patient:: 35 - 50 minutes Critical Care Time: Yes Total Critical Care Time: 30
[2022-03-01 19:04] LABS: Basophils # (Auto) 0.02 K/mcL (0.00-0.30); Basophils % (Auto) 0.2 % (0.0-2.0); Eosinophils # (Auto) 0 K/mcL (0.00-0.70); Eosinophils % (Auto) 0 % (0.0-7.0); Hematocrit 49.2 % (40.1-51.0); Hemoglobin 16.2 g/dL (13.7-17.5); Lymphocytes # (Auto) 0.48 K/mcL (1.50-4.80); Lymphocytes % (Auto) 5.9 % (15.5-49.0); Mean Cell Volume 92.7 fL (80.0-100.0); Mean Corpuscular HGB Conc 32.9 g/dL (31.0-36.0); Mean Platelet Volume 8.7 fL (7.4-10.4); Monocytes # (Auto) 0.41 K/mcL (0.10-0.90); Neutrophils % (Auto) 88.8 % (38.0-78.0); Platelet Count 354 K/mcL (140-440); RBC 5.31 M/mcL (4.63-6.08); Red Cell Distribution Width 14.1 % (11.5-14.5); WBC 8.2 K/mcL (4.5-11.0)
[2022-03-01] MEDS ORDERED: IOPAMIDOL 100 ML BOTTLE IV ONE (19:22)
[2022-03-01 19:25] LABS: ALT/SGPT 44 U/L (<40); AST/SGOT 24 U/L (<40); Albumin 3.8 gm/dL (3.2-5.2); Albumin/Globulin Ratio 1.1 (1.0-2.3); Alkaline Phosphatase 170 U/L (39-117); Bilirubin,Total 0.6 mg/dL (0.1-1.0); Blood Urea Nitrogen 20 mg/dL (8-23); Calcium 9.5 mg/dL (8.6-10.4); Carbon Dioxide 27 mmol/L (22-30); Chloride 102 mmol/L (96-108); Globulin 3.5 gm/dL (2.2-3.7); Glomerular Filtration Rate 49; Glucose 172 mg/dL (70-105)
[2022-03-01] MEDS ORDERED: DIATRIZOATE MEGLU/DIATRIZO SOD 120 ML BOTTLE PO ONE (19:29)
--- NOTE | 2022-03-01 19:43 | Cat Scan Report ---
INDICATION: ?Ischemic bowel COMPARISON: Previous CT scan dated 02/28/2022 TECHNIQUE: Axial images were obtained through the abdomen and pelvis. Sagittally and coronally reformatted images. 80 mL Isovue 370 injected intravenously. There is oral contrast material within the gastrointestinal tract due to small bowel study begun this morning FINDINGS: Lung bases:Severe pulmonary parenchymal abnormality in both lower lobes. There is consolidation with air bronchograms. Appearance is consistent with pneumonia. These are new findings since previous examination. This patient has had a nasogastric tube in place but aspiration pneumonia is not excluded. Liver:Negative. No focal intrahepatic mass. No focal abnormality. Liver contour is smooth. No evidence for cirrhosis Gallbladder, bilary:Gallbladder is distended. Gallbladder measures 10.2 cm maximally. No calcified gallstones. No gallbladder wall thickening. No dilated bile ducts. Spleen:No splenomegaly. Normal enhancement of splenic and portal veins. Pancreas:No pancreatic mass. No peripancreatic abnormality Adrenal glands:Negative Kidneys,ureters,bladder:Right upper pole renal cyst is again identified. No solid renal mass. There is no hydronephrosis. No hydroureter. No ureteral calculus. There is contrast material within the urinary bladder from previous CT scan. Bladder wall is trabeculated. There is no discrete bladder mass identified. Gastrointestinal:Patient has a history of subtotal colectomy. There is an anastomotic suture line at the sigmoid rectal junction. There is a second suture line consistent with small bowel colon anastomosis in the right side of the pelvis. There is also a suture line in the right upper quadrant which appears to be an enteroenteroanastomosis. Persistent dilated small bowel consistent with mechanical small bowel obstruction. There is prominent small bowel feces in the right side of the abdomen. Transition point is difficult to identify. There is narrowed small bowel proximal to the enterocolonic anastomosis. Small bowel feces sign is higher in the abdomen on the right side. This may also be at the point of obstruction. There is no detectable closed loop obstruction. Bowel wall appears perfused. There is no bowel wall thickening. There is no perienteric fluid. There is no pneumoperitoneum. Appendix: The appendix is surgically absent Vascular:Abdominal aorta is negative. Superior mesenteric artery and celiac trunk are normal without stenosis Lymphatic:No retroperitoneal or mesenteric adenopathy Mesentery, peritoneum: No free intraperitoneal fluid. No pneumoperitoneum. No intra-abdominal abscess Reproductive:Prostate is not significantly enlarged Musculoskeletal:No lumbar compression fractures. Sacrum and pelvis are negative. No hip fracture. Small umbilical hernia contains only mesenteric fat. There is no protruding bowel IMPRESSION: 1. Bilateral lower lobe consolidation consistent with pneumonia. Aspiration pneumonia is possible 2. Persistent mechanical small bowel obstruction, essentially unchanged. Transition point appears to be in the right side of the abdomen. There may be a transition point at the enterocolonic anastomosis or may be a transition point slightly more cephalad in the right side of the abdomen at the point of small bowel feces 3. Distended gallbladder 4. No CT evidence for mesenteric ischemia The exam was performed using radiation dose optimization techniques including, but not limited to, automated exposure control, adjustment of the mA and/or kV according to patient size and use of iterative reconstruction technique. Interpreted and Authenticated by: Jacob Blanco 03/01/22
--- NOTE | 2022-03-01 19:49 | XRay Report ---
INDICATION: follow up sbo TECHNIQUE: Gastrografin was administered through this patient's esophagogastric tube. Serial images were obtained to 7 hours, 40 minutes. COMPARISON: CT scan dated 02/28/2022 FINDINGS: Markedly dilated small bowel. There is slow progression of contrast material through the small bowel. At 7 hours, 40 minutes there is contrast material through the jejunum but with very little ileal opacification. At this time the study was terminated as this patient was having respiratory difficulty and a follow-up CT scan was performed IMPRESSION: 1. Markedly delayed passage of contrast through small bowel 2. Dilated small bowel consistent with mechanical small bowel obstruction Interpreted and Authenticated by: Jacob Blanco 03/01/22
[2022-03-02] MEDS: LACTATED RINGERS 1,000 ML IV SCH ×3 (05:29→15:59)
[2022-03-02 06:24] LABS: Basophils # (Auto) 0.04 K/mcL (0.00-0.30); Basophils % (Auto) 0.4 % (0.0-2.0); Eosinophils # (Auto) 0 K/mcL (0.00-0.70); Eosinophils % (Auto) 0 % (0.0-7.0); Hematocrit 41.7 % (40.1-51.0); Hemoglobin 13.4 g/dL (13.7-17.5); Lymphocytes # (Auto) 0.46 K/mcL (1.50-4.80); Mean Cell Volume 94.6 fL (80.0-100.0); Mean Corpuscular HGB Conc 32.1 g/dL (31.0-36.0); Monocytes # (Auto) 0.46 K/mcL (0.10-0.90); Neutrophils % (Auto) 89.2 % (38.0-78.0); Platelet Count 223 K/mcL (140-440); RBC 4.41 M/mcL (4.63-6.08); Red Cell Distribution Width 14.1 % (11.5-14.5); WBC 9.3 K/mcL (4.5-11.0)
[2022-03-02 06:34] LABS: Blood Urea Nitrogen 23 mg/dL (8-23); Calcium 8.4 mg/dL (8.6-10.4); Carbon Dioxide 27 mmol/L (22-30); Chloride 108 mmol/L (96-108); Glomerular Filtration Rate 53; Glucose 137 mg/dL (70-105)
--- NOTE | 2022-03-02 08:56 | XRay Report ---
INDICATION: Follow-up partial small bowel obstruction TECHNIQUE: Supine abdomen. COMPARISON: Previous CT scan dated 03/01/2022. Previous small bowel study dated 03/01/2022 FINDINGS:Present examination is obtained 24 hours after initiation of a small bowel study with water-soluble contrast material. There is persistent small bowel dilatation. There has been passage of contrast material to the rectum consistent with high-grade partial obstruction at this time. IMPRESSION: Contrast material within the rectum. Present examination is obtained 24 hours after initiation of small bowel study Interpreted and Authenticated by: Jacob Blanco 03/02/22
[2022-03-02] MEDS ORDERED: PIPERACILLIN SODIUM/TAZOBACTAM 3.375 GM in DEXTROSE 5% IN WATER 50 ML IV SCH (09:00)
--- NOTE | 2022-03-02 11:50 | Internal Med Progress Note ---
SUBJECTIVE Subjective Patient information: Note initiated : 03/02/22 at 11:48 am Service Date, if different from initiated Date: [] Patient: Prosper Kellogg 61 y/o M admitted on 03/01/22 for possible drug reaction. Chief Complaint: [SVT] Principal diagnosis: Small bowel obstruction Interval history: The patient was resting comfortably with his significant other at the bedside. He is looking and feeling much better. He has had 2 bowel movements. The NG tube has now been removed. RN was present at the bedside to discuss plan of care. Constitutional Vitals: Vital Signs Temp Pulse Resp BP Pulse Ox O2 Del Method O2 Flow Rate 99.3 F H 81 22 117/63 95 4 03/02/22 08:01 03/02/22 10:06 03/02/22 07:01 03/02/22 10:06 03/02/22 10:06 03/02/22 08:00 03/02/22 10:06 Period Temp Pulse Resp BP Sys/Interiano Pulse Ox O2 Del Method O2 Flow Rate Last 24 Hr 97.4 F-101.5 F 81-160 16-28 104-162/63-100 90-96 Nasal Cannula-Oxymask 2-15 Intake and Output 03/01/22 03/02/22 03/02/22 21:59 05:59 13:59 Intake Total 896 1421 2955 Output Total 2050 500 450 Balance -3013 407 5120 Weight 72.393 kg Intake & Output: Intake & Output 03/01/22 03/02/22 03/02/22 21:59 05:59 13:59 Intake Total 896 1421 2955 Output Total 0 500 450 Balance -8613 979 7283 Weight 72.393 kg Intake: IV 896 1421 1035 Lactated Ringers 1,000 ml @ 274 638 2839 985 mls/hr IV .Q8H [facility] Rx#: [id number] Zosyn 3.375 gm In Dextrose 5% 50 50 in Water 50 ml @ 100 mls/hr IV Q6H [facility] Rx#:[id number] Oral 1920 Tube Feeding 0 Output: Gastric Drainage 1650 Right Nare 1650 Urine Catheter Amount 100 Void Amount 300 500 Stool 450 Other: Urine Appearance Clear Clear Urine Color Dark Yellow Dark Yellow Urine Odor Normal Normal Stool Size Large Stool Color Green Brown Green Stool Consistency Loose Liquid # Bowel Movements 1 Head Head exam: Present atraumatic and normal inspection Eye Eye exam: Present normal appearance ENT ENT exam: Present mucous membranes moist, normal exam and normal external ear exam Neck Neck exam: Present normal inspection Respiratory Respiratory exam: Present normal respiratory exam Cardiovascular Cardiovascular exam: Present normal rate and rhythm GI/Abdominal GI/Abdominal exam: Present normal bowel sounds Back Exam Back exam: Present normal inspection Neurological Exam Neurological exam: Present alert and oriented X3 Skin Skin exam: Present intact and warm OBJ DATA Labs CBC & Chem 7: 03/02/22 05:18 03/02/22 05:18 Labs: Abnormal Lab Results 03/02/22 03/02/22 03/02/22 09:13 05:18 05:18 WBC RBC 4.41 L Hgb 13.4 L Neut % (Auto) 89.2 H Lymph % (Auto) 5.0 L Lymph # (Auto) 0.46 L Absolute Neutrophils 8.29 H POC PT POC INR D-Dimer POC VBG pCO2 at Temp POC VBG HCO3 POC VBG Total CO2 VBG Lactic Acid 2.4 H Chloride Anion Gap Creatinine 1.4 H POC Creatinine Glucose 137 H POC Glucose Calcium 8.4 L POC WB Ioniz Calcium AST ALT Alkaline Phosphatase Urine Occult Blood Urine Mucus 03/01/22 03/01/22 03/01/22 18:53 18:33 18:24 WBC RBC Hgb Neut % (Auto) Lymph % (Auto) Lymph # (Auto) Absolute Neutrophils POC PT 36.8 H POC INR 3.2 H D-Dimer 1.97 H POC VBG pCO2 at Temp 55.3 H POC VBG HCO3 28.3 H POC VBG Total CO2 30.0 H VBG Lactic Acid 4.6 H* Chloride Anion Gap Creatinine POC Creatinine Glucose POC Glucose Calcium POC WB Ioniz Calcium AST ALT Alkaline Phosphatase Urine Occult Blood Urine Mucus 03/01/22 03/01/22 03/01/22 18:24 18:24 05:24 WBC RBC Hgb Neut % (Auto) 88.8 H Lymph % (Auto) 5.9 L Lymph # (Auto) 0.48 L Absolute Neutrophils POC PT POC INR D-Dimer POC VBG pCO2 at Temp POC VBG HCO3 POC VBG Total CO2 VBG Lactic Acid Chloride 109 H Anion Gap 6.0 L Creatinine 1.5 H POC Creatinine Glucose 172 H 131 H POC Glucose Calcium POC WB Ioniz Calcium AST ALT 44 H Alkaline Phosphatase 170 H Urine Occult Blood Urine Mucus 03/01/22 02/28/22 02/28/22 05:24 19:35 18:06 WBC 11.7 H RBC Hgb Neut % (Auto) 86.5 H Lymph % (Auto) 5.4 L Lymph # (Auto) 0.63 L Absolute Neutrophils 10.12 H POC PT POC INR D-Dimer POC VBG pCO2 at Temp POC VBG HCO3 POC VBG Total CO2 VBG Lactic Acid Chloride Anion Gap Creatinine POC Creatinine 1.3 H Glucose POC Glucose 150 H Calcium POC WB Ioniz Calcium 1.08 L AST ALT Alkaline Phosphatase Urine Occult Blood Trace-intact A Urine Mucus Few A 02/28/22 02/28/22 17:57 17:57 WBC 18.2 H RBC Hgb Neut % (Auto) 92.8 H Lymph % (Auto) 2.5 L Lymph # (Auto) 0.45 L Absolute Neutrophils 16.92 H POC PT POC INR D-Dimer POC VBG pCO2 at Temp POC VBG HCO3 POC VBG Total CO2 VBG Lactic Acid Chloride Anion Gap Creatinine POC Creatinine Glucose POC Glucose Calcium POC WB Ioniz Calcium AST 40 H ALT 61 H Alkaline Phosphatase 209 H Urine Occult Blood Urine Mucus Meds: Medications Amoxicillin/Clavulanate Potassium (Amoxicillin/Potassium Clav 875 Mg Tablet) [facility] Protocol Hydromorphone HCl (Hydromorphone 0.5 Mg/0.5 Ml Syringe) 1 mg IV Q2HP PRN; Protocol PRN Reason: Per Pain Protocol Last Admin: 03/01/22 17:06 Dose: 1 mg Lactated Ringer's (Lactated Ringers) 1,000 mls @ 125 mls/hr IV .[facility]H [facility] Last Admin: 03/02/22 07:49 Dose: 125 mls/hr Sodium Chloride (Sodium Chloride 0.9%) 1,000 mls @ 0 mls/hr IV .Q0M [facility] Ondansetron HCl (Ondansetron 4 Mg/2 Ml Vial) 4 mg IV Q6HP PRN PRN Reason: Nausea And Vomiting Last Admin: 03/01/22 14:02 Dose: 4 mg A/P Assessment and plan (1) SBO (small bowel obstruction): Assessment and plan: Mx per surgery Status: Acute (2) SVT (supraventricular tachycardia): Assessment and plan: Tacchydysrhythmia rising above the [place] and encompasses regular atrial, irrgular atrial and regular AV tachycardias -DDX: AVRT, AVNRT, AF/flutter, ST -Investigations: TTE, d-dimer, trop, Mg, Phos -Tx: Lopressor 5mg IV x 1 -Monitor on telemetry 03/02: This is now resolved. The patient's heart rate is much improved Status: Acute Narrative A/P Narrative: Lactic acidosis -Investigations: CT a/p with contrast r/o ischemic bowel -Tx: LR bolus 03/02: The patient's lactic acid has come down to 2.4 and he likely developed sepsis from aspiration pneumonia. His Zosyn will be transition to Augmentin. CT findings were concerning for bibasilar infiltrates at the bases. Time Spent With Patient Time: Total time spent is greater than 50% in coordination of care (as documented) at patient's floor/unit and/or counseling patient: Total time spent with greater than 50% in coordination of care (as documented) at patient's floor/unit and/or counseling patient:: 25 - 35 minutes Critical Care Time: Yes Total Critical Care Time: 30
--- NOTE | 2022-03-02 13:05 | General Surgery Progress Note ---
SUBJECTIVE Subjective Patient information: Note initiated : 03/02/22 at 1:03 pm Service Date, if different from initiated Date: [] Patient: Prosper Kellogg 61 y/o M admitted on 03/01/22 for possible drug reaction. Chief Complaint: [] Principal diagnosis: Small bowel obstruction Interval history: Patient was admitted for partial small bowel obstruction. Patient had a small bowel follow-through yesterday which did not show contrast through the small bowel at 3 hours. Patient got distended, nauseous and shortly after the study was concluded had an episode of SVT. Patient was transferred to the ICU for further monitoring of pulmonary and cardiac parameters. Overnight patient had 2 large bowel movements complete resolution of abdominal pain and distention with no further nausea vomiting fevers chills and resolution of his tachycardia. Constitutional Vitals: Vital Signs Temp Pulse Resp BP Pulse Ox O2 Del Method O2 Flow Rate 99.3 F H 81 22 117/63 95 4 03/02/22 08:01 03/02/22 10:06 03/02/22 07:01 03/02/22 10:06 03/02/22 10:06 03/02/22 08:00 03/02/22 10:06 Period Temp Pulse Resp BP Sys/Interiano Pulse Ox O2 Del Method O2 Flow Rate Last 24 Hr 99.3 F-101.5 F 81-160 16-28 104-162/63-100 90-96 Nasal Cannula-Oxymask 2-15 Intake and Output 03/01/22 03/02/22 03/02/22 21:59 05:59 13:59 Intake Total 896 1421 2955 Output Total 2049 500 450 Balance -4787 260 0185 Weight 159 lb 9.6 oz Intake & Output: Intake & Output 03/01/22 03/02/22 03/02/22 21:59 05:59 13:59 Intake Total 896 1421 2955 Output Total 2049 500 450 Balance -8179 250 6701 Weight 159 lb 9.6 oz Intake: IV 896 1421 1035 Lactated Ringers 1,000 ml @ 881 153 8172 985 mls/hr IV .Q8H [facility] Rx#: [id number] Zosyn 3.375 gm In Dextrose 5% 50 50 in Water 50 ml @ 100 mls/hr IV Q6H [facility] Rx#:[id number] Oral 1920 Tube Feeding 0 Output: Gastric Drainage 1650 Right Nare 1650 Urine Catheter Amount 100 Void Amount 300 500 Stool 450 Other: Urine Appearance Clear Clear Urine Color Dark Yellow Dark Yellow Urine Odor Normal Normal Stool Size Large Stool Color Green Brown Green Stool Consistency Loose Liquid # Bowel Movements 1 General appearance: no acute distress GI/Abdominal GI/Abdominal exam: Present soft; Absent distended, mass, rebound or tenderness A/P Assessment and plan (1) SBO (small bowel obstruction): Plan: Small bowel obstruction appears to have resolved. DC NG tube, clear liquid diet. If patient tolerates clear liquid diet will be clear for discharge later tonight or tomorrow from a surgical standpoint. Appreciate hospitalist input on cardiac standpoint. Status: Acute Time Spent With Patient Time: Total time spent is greater than 50% in coordination of care (as documented) at patient's floor/unit and/or counseling patient:
[2022-03-02] MEDS: AMOXICILLIN/POTASSIUM CLAV 875 MG TABLET PO SCH (17:05)
[2022-03-02] MEDS: ONDANSETRON 4 MG/2 ML VIAL IV PRN (17:09)
[2022-03-02] MEDS: 0.9 % SODIUM CHLORIDE 10 ML SYRINGE IV SCH (21:15)
[2022-03-03] MEDS: LACTATED RINGERS 1,000 ML IV SCH ×4 (00:05→16:47)
[2022-03-03] MEDS: 0.9 % SODIUM CHLORIDE 10 ML SYRINGE IV SCH ×4 (05:40→22:56)
--- NOTE | 2022-03-03 07:31 | General Surgery Progress Note ---
SUBJECTIVE Subjective Patient information: Note initiated : 03/03/22 at 7:29 am Service Date, if different from initiated Date: [] Patient: Prosper Kellogg 61 y/o M admitted on 03/01/22 for possible drug reaction. Chief Complaint: [] Principal diagnosis: Small bowel obstruction Interval history: Patient tolerated clear liquid diet without difficulty. Continues to have return of his normal bowel function. No fevers chills nausea or vomiting. Constitutional Vitals: Vital Signs Temp Pulse Resp BP Pulse Ox O2 Del Method O2 Flow Rate 98.3 F 65 18 121/65 96 2.5 03/03/22 04:01 03/03/22 06:01 03/03/22 06:01 03/03/22 06:01 03/03/22 06:01 03/03/22 04:20 03/03/22 06:01 Period Temp Pulse Resp BP Sys/Interiano Pulse Ox O2 Del Method O2 Flow Rate Last 24 Hr 98.3 F-100.0 F 61-92 17-21 91-128/47-81 94-97 Nasal Cannula- Nasal Cannula 2.5-20 Intake and Output 03/02/22 03/03/22 03/03/22 21:59 05:59 13:59 Intake Total 1360 1240 Output Total 1350 1375 Balance 10 -135 Weight 162 lb 8 oz Intake & Output: Intake & Output 03/02/22 03/03/22 03/03/22 21:59 05:59 13:59 Intake Total 1360 1240 Output Total 1350 1375 Balance 10 -135 Weight 162 lb 8 oz Intake: IV 1000 1000 Lactated Ringers 1,000 ml @ 125 1000 1000 mls/hr IV .Q8H [facility] Rx#: [id number] Oral 360 240 Output: Void Amount 150 Urine/Stool Mix 1350 650 Stool 575 Other: Urine Appearance Clear Urine Color Dark Yellow Stool Color Brown Green Green Stool Consistency Liquid Liquid # of times incontinent of 1 Bowels General appearance: cooperative and no acute distress GI/Abdominal GI/Abdominal exam: Present normal bowel sounds and soft; Absent distended or tenderness A/P Assessment and plan (1) SBO (small bowel obstruction): Plan: Resolved bowel obstruction. Advance diet as tolerated. Wean oxygen to off, anticipate discharge once off oxygen. Status: Acute Time Spent With Patient Time: Total time spent is greater than 50% in coordination of care (as documented) at patient's floor/unit and/or counseling patient:
[2022-03-03] MEDS: AMOXICILLIN/POTASSIUM CLAV 875 MG TABLET PO SCH ×2 (08:05→17:37)
--- NOTE | 2022-03-03 11:13 | Internal Med Progress Note ---
SUBJECTIVE Subjective Patient information: Note initiated : 03/03/22 at 11:11 am Service Date, if different from initiated Date: [] Patient: Prosper Kellogg 61 y/o M admitted on 03/01/22 for possible drug reaction. Chief Complaint: [] Principal diagnosis: Small bowel obstruction Interval history: The patient is looking and feeling much better. Discussed plan of care at length with him today. He is in good spirits. He was wondering if he should be moving to the [facility] in the setting of SBO. He understands that he would be at risk for redevelopment of his bowel obstruction at any point at any time. It would be beneficial if he were to stay in the [place] in my opinion. Constitutional Vitals: Vital Signs Temp Pulse Resp BP Pulse Ox O2 Del Method O2 Flow Rate 98.0 F 71 26 H 109/56 95 2.5 03/03/22 08:01 03/03/22 10:01 03/03/22 10:01 03/03/22 10:01 03/03/22 10:01 03/03/22 04:20 03/03/22 06:01 Period Temp Pulse Resp BP Sys/Interiano Pulse Ox O2 Del Method O2 Flow Rate Last 24 Hr 98.0 F-100.0 F 60-90 17-26 91-125/47-81 94-97 Nasal Cannula- Nasal Cannula 2.5-20 Intake and Output 03/02/22 03/03/22 03/03/22 21:59 05:59 13:59 Intake Total 1360 1240 1240 Output Total 1350 1375 750 Balance 10 -135 490 Weight 73.709 kg Intake & Output: Intake & Output 03/02/22 03/03/22 03/03/22 21:59 05:59 13:59 Intake Total 1360 1240 1240 Output Total 1350 1375 750 Balance 10 -135 490 Weight 73.709 kg Intake: IV 1000 1000 1000 Lactated Ringers 1,000 ml @ 125 1000 1000 1000 mls/hr IV .Q8H [facility] Rx#: [id number] Oral 360 240 240 Output: Void Amount 150 Urine/Stool Mix 1350 650 Stool 575 750 Other: Meal Breakfast Percent of Meal Consumed 100% Feeding Ability Independent Urine Appearance Clear Urine Color Dark Yellow Stool Color Brown Green Green Green Stool Consistency Liquid Liquid Liquid Watery # of times incontinent of 1 Bowels Head Head exam: Present atraumatic and normal inspection Eye Eye exam: Present normal appearance ENT ENT exam: Present mucous membranes moist, normal exam and normal external ear exam Neck Neck exam: Present normal inspection Respiratory Respiratory exam: Present normal respiratory exam Cardiovascular Cardiovascular exam: Present normal rate and rhythm GI/Abdominal GI/Abdominal exam: Present normal bowel sounds Back Exam Back exam: Present normal inspection Neurological Exam Neurological exam: Present alert and oriented X3 Skin Skin exam: Present intact and warm OBJ DATA Labs CBC & Chem 7: 03/02/22 05:18 03/02/22 05:18 Labs: Abnormal Lab Results 03/02/22 03/02/22 03/02/22 09:13 05:18 05:18 WBC RBC 4.41 L Hgb 13.4 L Neut % (Auto) 89.2 H Lymph % (Auto) 5.0 L Lymph # (Auto) 0.46 L Absolute Neutrophils 8.29 H POC PT POC INR D-Dimer POC VBG pCO2 at Temp POC VBG HCO3 POC VBG Total CO2 VBG Lactic Acid 2.4 H Chloride Anion Gap Creatinine 1.4 H POC Creatinine Glucose 137 H POC Glucose Calcium 8.4 L POC WB Ioniz Calcium AST ALT Alkaline Phosphatase Urine Occult Blood Urine Mucus 03/01/22 03/01/22 03/01/22 18:53 18:33 18:24 WBC RBC Hgb Neut % (Auto) Lymph % (Auto) Lymph # (Auto) Absolute Neutrophils POC PT 36.8 H POC INR 3.2 H D-Dimer 1.97 H POC VBG pCO2 at Temp 55.3 H POC VBG HCO3 28.3 H POC VBG Total CO2 30.0 H VBG Lactic Acid 4.6 H* Chloride Anion Gap Creatinine POC Creatinine Glucose POC Glucose Calcium POC WB Ioniz Calcium AST ALT Alkaline Phosphatase Urine Occult Blood Urine Mucus 03/01/22 03/01/22 03/01/22 18:24 18:24 05:24 WBC RBC Hgb Neut % (Auto) 88.8 H Lymph % (Auto) 5.9 L Lymph # (Auto) 0.48 L Absolute Neutrophils POC PT POC INR D-Dimer POC VBG pCO2 at Temp POC VBG HCO3 POC VBG Total CO2 VBG Lactic Acid Chloride 109 H Anion Gap 6.0 L Creatinine 1.5 H POC Creatinine Glucose 172 H 131 H POC Glucose Calcium POC WB Ioniz Calcium AST ALT 44 H Alkaline Phosphatase 170 H Urine Occult Blood Urine Mucus 03/01/22 02/28/22 02/28/22 05:24 19:35 18:06 WBC 11.7 H RBC Hgb Neut % (Auto) 86.5 H Lymph % (Auto) 5.4 L Lymph # (Auto) 0.63 L Absolute Neutrophils 10.12 H POC PT POC INR D-Dimer POC VBG pCO2 at Temp POC VBG HCO3 POC VBG Total CO2 VBG Lactic Acid Chloride Anion Gap Creatinine POC Creatinine 1.3 H Glucose POC Glucose 150 H Calcium POC WB Ioniz Calcium 1.08 L AST ALT Alkaline Phosphatase Urine Occult Blood Trace-intact A Urine Mucus Few A 02/28/22 02/28/22 17:57 17:57 WBC 18.2 H RBC Hgb Neut % (Auto) 92.8 H Lymph % (Auto) 2.5 L Lymph # (Auto) 0.45 L Absolute Neutrophils 16.92 H POC PT POC INR D-Dimer POC VBG pCO2 at Temp POC VBG HCO3 POC VBG Total CO2 VBG Lactic Acid Chloride Anion Gap Creatinine POC Creatinine Glucose POC Glucose Calcium POC WB Ioniz Calcium AST 40 H ALT 61 H Alkaline Phosphatase 209 H Urine Occult Blood Urine Mucus Meds: Medications Amoxicillin/Clavulanate Potassium (Amoxicillin/Potassium Clav 875 Mg Tablet) 875 mg PO BIDCC [facility]; Protocol Last Admin: 03/03/22 08:05 Dose: 875 mg Hydromorphone HCl (Hydromorphone 0.5 Mg/0.5 Ml Syringe) 1 mg IV Q2HP PRN; Protocol PRN Reason: Per Pain Protocol Last Admin: 03/01/22 17:06 Dose: 1 mg Lactated Ringer's (Lactated Ringers) 1,000 mls @ 125 mls/hr IV .Q8H [facility] Last Admin: 03/03/22 08:06 Dose: 125 mls/hr Sodium Chloride (Sodium Chloride 0.9%) 1,000 mls @ 0 mls/hr IV .Q0M [facility] Ondansetron HCl (Ondansetron 4 Mg/2 Ml Vial) 4 mg IV Q6HP PRN PRN Reason: Nausea And Vomiting Last Admin: 03/02/22 17:09 Dose: 4 mg Sodium Chloride (0.9 % Sodium Chloride 10 Ml Syringe) 10 ml IV Q8 [facility] Last Admin: 03/03/22 05:40 Dose: 10 ml A/P Assessment and plan (1) SBO (small bowel obstruction): Assessment and plan: Mx per surgery Status: Acute (2) SVT (supraventricular tachycardia): Assessment and plan: Tacchydysrhythmia rising above the [place] of His and encompasses regular atrial, irrgular atrial and regular AV tachycardias -DDX: AVRT, AVNRT, AF/flutter, ST -Investigations: TTE, d-dimer, trop, Mg, Phos -Tx: Lopressor 5mg IV x 1 -Monitor on telemetry 03/02: This is now resolved. The patient's heart rate is much improved Status: Acute Narrative A/P Narrative: Lactic acidosis -Investigations: CT a/p with contrast r/o ischemic bowel -Tx: LR bolus 03/02: The patient's lactic acid has come down to 2.4 and he likely developed sepsis from aspiration pneumonia. His Zosyn will be transition to Augmentin. CT findings were concerning for bibasilar infiltrates at the bases. 03/03: The patient's supplemental O2 is being weaned down. He is on Augmentin for his aspiration pneumonia and will be treated for total of 5 days. He may be able to discharge home in 1 to 2 days. Thank you for allowing me to participate in the care of this patient. I will continue to follow along. Do not hesitate to call with any questions or concerns. Time Spent With Patient Time: Total time spent is greater than 50% in coordination of care (as documented) at patient's floor/unit and/or counseling patient: Total time spent with greater than 50% in coordination of care (as documented) at patient's floor/unit and/or counseling patient:: 25 - 35 minutes
[2022-03-03] MEDS: HYDROmorphone 0.5 MG/0.5 ML SYRINGE IV PRN ×4 (12:16→20:25)
[2022-03-03] MEDS ORDERED: PANTOPRAZOLE 40 MG TABLET PO SCH (21:00)
[2022-03-03] MEDS ORDERED: FLEETS ADULT ENEMA PR ONE ×2 (22:40→22:56)
[2022-03-04] MEDS: LACTATED RINGERS 1,000 ML IV SCH ×3 (00:51→09:51)
[2022-03-04] MEDS: AMOXICILLIN/POTASSIUM CLAV 875 MG TABLET PO SCH (08:35)
[2022-03-04] MEDS: 0.9 % SODIUM CHLORIDE 10 ML SYRINGE IV SCH ×2 (08:36→12:46)
--- NOTE | 2022-03-04 08:54 | General Surgery Progress Note ---
SUBJECTIVE Subjective Patient information: Note initiated : 03/04/22 at 8:47 am Service Date, if different from initiated Date: [] Patient: Prosper Kellogg 61 y/o M admitted on 03/01/22 for possible drug reaction. Chief Complaint: [] Principal diagnosis: Small bowel obstruction Interval history: + Flatus and bowel movement overnight after fleets enema. Patient feels well and is hungry. Constitutional Vitals: Vital Signs Temp Pulse Resp BP Pulse Ox O2 Del Method O2 Flow Rate 99.0 F 87 14 151/79 94 0 03/04/22 08:09 03/04/22 08:09 03/04/22 08:09 03/04/22 08:09 03/04/22 08:09 03/04/22 01:00 03/04/22 06:04 Period Temp Pulse Resp BP Sys/Interiano Pulse Ox O2 Del Method O2 Flow Rate Last 24 Hr 97.8 F-100.4 F 69-87 13-26 109-154/56-115 86-98 Nasal Cannula- Room Air 0-2 Intake and Output 03/03/22 03/04/22 03/04/22 21:59 05:59 13:59 Intake Total 1480 1120 Output Total 250 2550 350 Balance 1230 -1430 -350 Weight 167 lb 12.8 oz Intake & Output: Intake & Output 03/03/22 03/04/22 03/04/22 21:59 05:59 13:59 Intake Total 1480 1120 Output Total 250 2550 350 Balance 1230 -1430 -350 Weight 167 lb 12.8 oz Intake: IV 1000 1000 Lactated Ringers 1,000 ml @ 125 1000 1000 mls/hr IV .Q8H [facility] Rx#: [id number] Oral 480 120 Output: Void Amount 250 450 350 Stool 2100 Other: Meal Dinner Percent of Meal Consumed 100% Feeding Ability Independent Urine Appearance Clear Clear Clear Urine Color Dark Yellow Dark Yellow Yellow [place] Green Urine Odor Normal Strong Stool Color Green Stool Consistency Liquid General appearance: cooperative and no acute distress GI/Abdominal GI/Abdominal exam: Present soft; Absent distended or tenderness A/P Assessment and plan (1) SBO (small bowel obstruction): Plan: Small bowel obstruction resolved. Diet and tolerated. Cleared for discharge from a surgical standpoint once off oxygen. Status: Acute Time Spent With Patient Time: Total time spent is greater than 50% in coordination of care (as documented) at patient's floor/unit and/or counseling patient:
[2022-03-04 10:09] LABS: Basophils # (Auto) 0.04 K/mcL (0.00-0.30); Basophils % (Auto) 0.5 % (0.0-2.0); Eosinophils # (Auto) 0.04 K/mcL (0.00-0.70); Eosinophils % (Auto) 0.5 % (0.0-7.0); Hematocrit 39.7 % (40.1-51.0); Hemoglobin 12.4 g/dL (13.7-17.5); Lymphocytes # (Auto) 0.63 K/mcL (1.50-4.80); Lymphocytes % (Auto) 7.3 % (15.5-49.0); Mean Cell Volume 96.6 fL (80.0-100.0); Mean Corpuscular HGB Conc 31.2 g/dL (31.0-36.0); Mean Platelet Volume 9.2 fL (7.4-10.4); Monocytes # (Auto) 0.56 K/mcL (0.10-0.90); Monocytes % (Auto) 6.5 % (1.0-12.0); Neutrophils % (Auto) 84.7 % (38.0-78.0); Platelet Count 204 K/mcL (140-440); RBC 4.11 M/mcL (4.63-6.08); Red Cell Distribution Width 13.4 % (11.5-14.5); WBC 8.7 K/mcL (4.5-11.0)
--- NOTE | 2022-03-04 10:33 | Internal Med Progress Note ---
SUBJECTIVE Subjective Patient information: Note initiated : 03/04/22 at 10:32 am Service Date, if different from initiated Date: [] Patient: Prosper Kellogg 61 y/o M admitted on 03/01/22 for possible drug reaction. Chief Complaint: [] Principal diagnosis: Small bowel obstruction Interval history: The patient was resting comfortably in bed. He is down to 1 L of supplemental O2 saturating about 95%. He has no active complaints or concerns. Discussed the case with the RN who was present at the bedside Constitutional Vitals: Vital Signs Temp Pulse Resp BP Pulse Ox O2 Del Method O2 Flow Rate 99.0 F 87 14 151/79 94 0 03/04/22 08:09 03/04/22 08:09 03/04/22 08:09 03/04/22 08:09 03/04/22 08:09 03/04/22 01:00 03/04/22 06:04 Period Temp Pulse Resp BP Sys/Interiano Pulse Ox O2 Del Method O2 Flow Rate Last 24 Hr 97.8 F-100.4 F 69-87 13-23 123-154/62-115 86-98 Nasal Cannula- Room Air 0-2 Intake and Output 03/03/22 03/04/22 03/04/22 21:59 05:59 13:59 Intake Total 1480 1120 1000 Output Total 250 2550 350 Balance 1230 -1430 650 Weight 76.113 kg Intake & Output: Intake & Output 03/03/22 03/04/22 03/04/22 21:59 05:59 13:59 Intake Total 1480 1120 1000 Output Total 250 2550 350 Balance 1230 -1430 650 Weight 76.113 kg Intake: IV 1000 1000 1000 Lactated Ringers 1,000 ml @ 125 1000 1000 1000 mls/hr IV .Q8H [facility] Rx#: [id number] Oral 480 120 Output: Void Amount 250 450 350 Stool 2100 Other: Meal Dinner Percent of Meal Consumed 100% Feeding Ability Independent Urine Appearance Clear Clear Clear Urine Color Dark Yellow Dark Yellow Yellow [place] Green Urine Odor Normal Strong Stool Color Green Stool Consistency Liquid Head Head exam: Present atraumatic and normal inspection Eye Eye exam: Present normal appearance ENT ENT exam: Present mucous membranes moist, normal exam and normal external ear exam Neck Neck exam: Present normal inspection Respiratory Respiratory exam: Present normal respiratory exam Cardiovascular Cardiovascular exam: Present normal rate and rhythm GI/Abdominal GI/Abdominal exam: Present normal bowel sounds Back Exam Back exam: Present normal inspection Neurological Exam Neurological exam: Present alert and oriented X3 Skin Skin exam: Present intact and warm OBJ DATA Labs CBC & Chem 7: 03/04/22 09:18 03/02/22 05:18 Labs: Abnormal Lab Results 03/04/22 03/02/22 03/02/22 09:18 09:13 05:18 RBC 4.11 L Hgb 12.4 L Hct 39.7 L Neut % (Auto) 84.7 H Lymph % (Auto) 7.3 L Lymph # (Auto) 0.63 L Absolute Neutrophils POC PT POC INR D-Dimer POC VBG pCO2 at Temp POC VBG HCO3 POC VBG Total CO2 VBG Lactic Acid 2.4 H Creatinine 1.4 H Glucose 137 H Calcium 8.4 L ALT Alkaline Phosphatase 03/02/22 03/01/22 03/01/22 05:18 18:53 18:33 RBC 4.41 L Hgb 13.4 L Hct Neut % (Auto) 89.2 H Lymph % (Auto) 5.0 L Lymph # (Auto) 0.46 L Absolute Neutrophils 8.29 H POC PT POC INR D-Dimer 1.97 H POC VBG pCO2 at Temp 55.3 H POC VBG HCO3 28.3 H POC VBG Total CO2 30.0 H VBG Lactic Acid 4.6 H* Creatinine Glucose Calcium ALT Alkaline Phosphatase 03/01/22 03/01/22 03/01/22 18:24 18:24 18:24 RBC Hgb Hct Neut % (Auto) 88.8 H Lymph % (Auto) 5.9 L Lymph # (Auto) 0.48 L Absolute Neutrophils POC PT 36.8 H POC INR 3.2 H D-Dimer POC VBG pCO2 at Temp POC VBG HCO3 POC VBG Total CO2 VBG Lactic Acid Creatinine 1.5 H Glucose 172 H Calcium ALT 44 H Alkaline Phosphatase 170 H Meds: Medications Amoxicillin/Clavulanate Potassium (Amoxicillin/Potassium Clav 875 Mg Tablet) 875 mg PO BIDCC [facility]; Protocol Last Admin: 03/04/22 08:35 Dose: 875 mg Hydromorphone HCl (Hydromorphone 0.5 Mg/0.5 Ml Syringe) 1 mg IV Q2HP PRN; Protocol PRN Reason: Per Pain Protocol Last Admin: 03/03/22 20:25 Dose: 1 mg Lactated Ringer's (Lactated Ringers) 1,000 mls @ 125 mls/hr IV .Q8H [facility] Last Admin: 03/04/22 09:51 Dose: 125 mls/hr Sodium Chloride (Sodium Chloride 0.9%) 1,000 mls @ 0 mls/hr IV .Q0M [facility] Ondansetron HCl (Ondansetron 4 Mg/2 Ml Vial) 4 mg IV Q6HP PRN PRN Reason: Nausea And Vomiting Last Admin: 03/02/22 17:09 Dose: 4 mg Pantoprazole Sodium (Pantoprazole 40 Mg Tablet) 40 mg PO HS [facility] Last Admin: 03/03/22 19:58 Dose: 40 mg Sodium Chloride (0.9 % Sodium Chloride 10 Ml Syringe) 10 ml IV Q8 [facility] Last Admin: 03/04/22 08:36 Dose: 10 ml A/P Assessment and plan (1) SBO (small bowel obstruction): Assessment and plan: Mx per surgery Status: Acute (2) SVT (supraventricular tachycardia): Assessment and plan: Tacchydysrhythmia rising above the [place] of His and encompasses regular atrial, irrgular atrial and regular AV tachycardias -DDX: AVRT, AVNRT, AF/flutter, ST -Investigations: TTE, d-dimer, trop, Mg, Phos -Tx: Lopressor 5mg IV x 1 -Monitor on telemetry 03/02: This is now resolved. The patient's heart rate is much improved Status: Acute Narrative A/P Narrative: Lactic acidosis -Investigations: CT a/p with contrast r/o ischemic bowel -Tx: LR bolus 03/02: The patient's lactic acid has come down to 2.4 and he likely developed sepsis from aspiration pneumonia. His Zosyn will be transition to Augmentin. CT findings were concerning for bibasilar infiltrates at the bases. 03/03: The patient's supplemental O2 is being weaned down. He is on Augmentin for his aspiration pneumonia and will be treated for total of 5 days. He may be able to discharge home in 1 to 2 days. 03/04: If the patient is able to be weaned off supplemental O2 he may be discharged home today and complete 5 days of Augmentin. Thank you for allowing me to participate in the care of this patient. I will continue to follow along. Do not hesitate to call with any questions or concerns. Time Spent With Patient Time: Total time spent is greater than 50% in coordination of care (as documented) at patient's floor/unit and/or counseling patient: Total time spent with greater than 50% in coordination of care (as documented) at patient's floor/unit and/or counseling patient:: 25 - 35 minutes
[2022-03-04 10:34] LABS: Blood Urea Nitrogen 13 mg/dL (8-23); Calcium 8.2 mg/dL (8.6-10.4); Carbon Dioxide 29 mmol/L (22-30); Chloride 99 mmol/L (96-108); Glomerular Filtration Rate 80; Glucose 110 mg/dL (70-105)
--- NOTE | 2022-03-04 13:29 | Discharge Summary ---
Discharge Provider Provider IMPORTANT FOLLOW-UP INFORMATION FOR PCP: Patient information: Note initiated : 03/04/22 at 1:27 pm Service Date, if different from initiated Date: [] Patient: Prosper Kellogg 61 y/o M admitted on 03/01/22 for possible drug reaction. Chief Complaint: [] Date of admission: 03/01/22 10:15 Discharge date: 03/04/22 Primary care physician: Kike Cantrell Consults: 02/28/22 Consult to Physician [CONS] Stat Comment: Consulting Provider: Alton Osorio Reason For Exam: Physician to Consult 03/01/22 18:06 Consult to Physician [CONS] Stat Comment: Consulting Provider: Joellen Shah Reason For Exam: Physician to Consult 03/01/22 18:15 Consult to Physician [CONS] Routine Comment: rapid rep Consulting Provider: Joellen Shah Reason For Exam: Physician to Consult COURSE Hospital Course Hospital course: Patient is admitted for a partial small bowel obstruction, patient underwent an upper GI small bowel follow-through and later that night had complete resolution of bowel obstruction with multiple bowel movements. While he came in and was distended he had a small aspiration event, had an episode of SVT was transferred to the ICU and ruled out cardiac issues. He was placed on antibiotics and respiratory status slowly improved. He is now back on room air, afebrile, tolerating regular diet. Discharge diagnosis: Resolved small bowel obstruction Time Spent with Patient Time attestation: Total time spent providing and/or coordinating discharge services: Time spent: Less than 30 minutes Physical Examination Vital Signs Vital signs: Temp Pulse Resp BP Pulse Ox O2 Del Method O2 Flow Rate 98.6 F 76 16 131/84 93 1 03/04/22 11:06 03/04/22 11:06 03/04/22 11:06 03/04/22 11:06 03/04/22 11:06 03/04/22 11:06 03/04/22 08:00 Discharge Plan Patient/Caregiver Discharge Instructions Activity: increase activity as tolerated Diet: Regular Diet Activity Restrictions/Additional Instructions: Resume normal activity as tolerated. Follow-up with me as needed Prescriptions: Continued warfarin 5 mg tablet See Rx Instructions .ROUTE .COMPLEX Rx Instructions: Pt takes 5mg MWF and 2.5 mg TRS Follow Up Plan Follow up with: Kike Cantrell MD [Primary Care Provider] - Patient Disposition: Home, Self-Care Discharge Orders: Discharge Order (Routine); Ordered 03/04/22 Ordered By: Alton Osorio Pending Pending Pending: Resuscitation Status Resuscitate (Full Code) Diet Regular Diet Start Sat Mar 0439 Amoxicillin/Clavulanate Potassium (Amoxicillin/Potassium Clav 875 Mg Tablet) 875 mg PO BIDCC GRETA; Protocol Last Admin: 03/04/22 08:35 Dose: 875 mg Documented By: Admin: 03/03/22 17:37 Dose: 875 mg Documented By: Admin: 03/03/22 08:05 Dose: 875 mg Documented By: Admin: 03/02/22 17:05 Dose: 875 mg Documented By: ZAINAB Hydromorphone HCl (Hydromorphone 0.5 Mg/0.5 Ml Syringe) 1 mg IV Q2HP PRN; Protocol PRN Reason: Per Pain Protocol Last Admin: 03/03/22 20:25 Dose: 1 mg Documented By: Admin: 03/03/22 18:06 Dose: 1 mg Documented By: Admin: 03/03/22 15:43 Dose: 1 mg Documented By: Admin: 03/03/22 12:16 Dose: 1 mg Documented By: Admin: 03/01/22 17:06 Dose: 1 mg Documented By: Admin: 03/01/22 14:52 Dose: 1 mg Documented By: Admin: 03/01/22 13:04 Dose: 1 mg Documented By: Admin: 03/01/22 10:56 Dose: 1 mg Documented By: BONILLA Lactated Ringer's (Lactated Ringers) 1,000 mls @ 125 mls/hr IV .Q8H [facility] Last Admin: 03/04/22 09:51 Dose: 125 mls/hr Documented By: Infusion: 03/04/22 08:51 Dose: 125 mls/hr Documented By: Admin: 03/04/22 08:36 Dose: Not Given Documented By: Admin: 03/04/22 00:51 Dose: 125 mls/hr Documented By: Infusion: 03/04/22 00:50 Dose: 0 mls/hr Documented By: Admin: 03/03/22 16:47 Dose: 125 mls/hr Documented By: WaliLAMB Infusion: 03/03/22 16:06 Dose: 125 mls/hr Documented By: Admin: 03/03/22 15:44 Dose: Not Given Documented By: WaliLAMB Admin: 03/03/22 08:06 Dose: 125 mls/hr Documented By: WaliLAMB Infusion: 03/03/22 08:05 Dose: 125 mls/hr Documented By: Admin: 03/03/22 00:05 Dose: 125 mls/hr Documented By: Infusion: 03/03/22 00:05 Dose: 0 mls/hr Documented By: Admin: 03/02/22 15:59 Dose: 125 mls/hr Documented By: Infusion: 03/02/22 15:49 Dose: 0 mls/hr Documented By: Admin: 03/02/22 07:49 Dose: 125 mls/hr Documented By: Infusion: 03/02/22 07:49 Dose: 0 mls/hr Documented By: Admin: 03/02/22 05:29 Dose: Not Given Documented By: Admin: 03/01/22 23:56 Dose: 125 mls/hr Documented By: Infusion: 03/01/22 23:56 Dose: 125 mls/hr Documented By: Admin: 03/01/22 20:34 Dose: 125 mls/hr Documented By: Infusion: 03/01/22 20:34 Dose: 125 mls/hr Documented By: Admin: 03/01/22 13:48 Dose: 125 mls/hr Documented By: Infusion: 03/01/22 13:39 Dose: 0 mls/hr Documented By: Admin: 03/01/22 05:35 Dose: 125 mls/hr Documented By: Infusion: 03/01/22 05:35 Dose: 125 mls/hr Documented By: Admin: 02/28/22 21:35 Dose: 125 mls/hr Documented By: RADHA Ondansetron HCl (Ondansetron 4 Mg/2 Ml Vial) 4 mg IV Q6HP PRN PRN Reason: Nausea And Vomiting Last Admin: 03/02/22 17:09 Dose: 4 mg Documented By: Admin: 03/01/22 14:02 Dose: 4 mg Documented By: DORCAS Pantoprazole Sodium (Pantoprazole 40 Mg Tablet) 40 mg PO HS [facility] Last Admin: 03/03/22 19:58 Dose: 40 mg Documented By: PRASANNA Sodium Chloride (0.9 % Sodium Chloride 10 Ml Syringe) 10 ml IV Q8 [facility] Last Admin: 03/04/22 12:46 Dose: Not Given Documented By: Admin: 03/04/22 08:36 Dose: 10 ml Documented By: Admin: 03/03/22 22:56 Dose: Not Given Documented By: StanXJeffry Admin: 03/03/22 19:58 Dose: 10 ml Documented By: StanXJeffry Admin: 03/03/22 15:44 Dose: 10 ml Documented By: Admin: 03/03/22 05:40 Dose: 10 ml Documented By: UXJeffry Admin: 03/02/22 21:15 Dose: 10 ml Documented By: UXJeffry Shift Summary 03/04/22 04:30 Shift Summary by Torie Matta Primary Diagnosis: SBO/Abd pain [facility] Date of Surgery (if applicable): N/A Pertinent Medical Dx/Issue(s): Ulcerative Colitis; Hx Total Colectomy (8-10 years ago), Hx of C-Diff, Hx of multiple hospitalizations, including in the [facility] were he stayed up to 10 months et were he contracted Covid. He is not vaccinated. Med management (antibiotics, diuretics, BP): Warfarin on hold at present, hx of DVTs et PEs. Kneehigh tedhose et SCDs in place Given single dose of 5mg IV Lopressor after [employer] for SVT to 170s 03/01. Rhythm stable since, with HR range 60 to mid 70's. IV LR 125mls/hr. PO Augmentin. Skin/Wound Care: No changes to left upper thigh abrasion. Abrasion is open to air and outlined. Pt states that it is improving, pt state "it is just a spider bite. Me and my have this often". at bedside states that she has had this skin issue as well. Vital Signs with Trends: VSS, febrile-temp up to 100.4 F. Pt was on 2 L/min NC at the beginning of the shift, able to titrate oxygen down to 1 L/min with SpO2 in the low to mid 90s. Uses I.S. up to 1500-much improved from yesterday. O2, liter flow/saturations: 1L NC Pain management (acute vs. chronic): Dilaudid 1 mg iv at 20:25 for 8/10 upper abdominal cramping. Pt quite distressed, hypertensive with Sinustachycardia (HR as high as 128 bpm). Pt requested antacid for his "acid reflux". Dr. Shah ordered Protonix. Dr. Osorio called for an order for a Fleets Enema as requested by pt. Pt was able to hold enema for 20 minutes et has had major flatulence since et passed 1700 ml green liquid stool since. He felt much better et was able to get some sleep. He has now NPO again. Lab/Rad (abnormals, trends): US echo Doppler done yesterday. No results yet. Neuro/Mental Status: A&Ox4, pleasant et appreciative Cardiac Rhythm, Alarm Settings: NSR/Sinus tachycardia Urinary Elimination Device: BSC Urinary output greater than 30mL/hr? Yes-so far 450 ml dark yellow/orange urine Date of last BM: 03/03/22 at 0300. Lines/Tubes: IV to RFA with LR running @125ml/hr, IV to LFA SL . Pt gained 7 lbs since admit et is in + 7000 fluid balance. No peripheral edema but abdominal distention Activity: Up with SBA to use BSC Recommendations/questions for MD: CBC and Inpatient Panel lab? Discharge Plan (needs, disposition, etc): Home with -Sharla works at the [employer]. She does not drive. Initialized on 03/03/22 17:18 - END OF NOTE Initialized on 03/04/22 04:30 - END OF NOTE
== END 2022-03-04 14:20 | disposition home or self-care (01) | DRG 388 ==
LOC: ED 16:31 → MEDSUR 20:47 → INTOOBSV 20:47 → ICU 03-01 18:38 → MEDSUR 03-04 10:15
PROVIDERS: ADMIT Surgery; ATTEND Surgery